=== PATIENT | female | born 1945 | race Caucasian/White ===

== ENCOUNTER 2018-05-13 14:19 | Outpatient (CLI) | payer OTHER ==
[~2018-05-13 14:19] MED LIST: LISINOPRIL2.5 MG; NORVASC5 MG; PLAQUENIL; ULTRACET PO; [UNRECOGNIZED DRUG - OTHER]; [UNRECOGNIZED DRUG - OTHER]
== END 2018-05-13 14:26 | disposition home or self-care (01) ==
LOC: MAMO-SONO 14:19
DX: Z12.31 Encounter for screening mammogram for malignant neoplasm of breast (principal); Z87.898 Personal history of other specified conditions; N60.22 Fibroadenosis of left breast; N60.21 Fibroadenosis of right breast

== ENCOUNTER 2020-04-06 14:19 | Outpatient (CLI) | payer OTHER | END 2020-04-06 14:32 | disposition home or self-care (01) | LOC: NUCLEAR 14:19 | DX: M81.0 Age-related osteoporosis without current pathological fracture (principal); Z13.820 Encounter for screening for osteoporosis ==

== ENCOUNTER → 2020-06-28 | Outpatient (CLI) | payer OTHER | END | disposition home or self-care (01) | LOC: SONOGRAMA 08:55 | PROVIDERS: ATTEND Specialist/Technologist, Other Nephrology | DX: K80.80 Other cholelithiasis without obstruction (principal); R10.84 Generalized abdominal pain; N18.30 Chronic kidney disease, stage 3 unspecified; R31.29 Other microscopic hematuria ==

== ENCOUNTER 2022-02-27 10:14 | Outpatient (CLI) | payer OTHER | END 2022-02-27 10:20 | disposition home or self-care (01) | LOC: SONOGRAMA 10:14 | DX: R10.9 Unspecified abdominal pain (principal); R31.9 Hematuria, unspecified; N18.30 Chronic kidney disease, stage 3 unspecified ==

== ENCOUNTER → 2022-04-20 | Outpatient (CLI) | payer OTHER | END | disposition home or self-care (01) | LOC: NUCLEAR 13:00 | PROVIDERS: ATTEND Internal Medicine | DX: M81.0 Age-related osteoporosis without current pathological fracture (principal) ==

== ENCOUNTER 2022-10-18 10:18 | Emergency (ER) | payer OTHER ==
[~2022-10-18] VITALS: Ht 152.4 cm; Wt 61.2 kg
== END 2022-10-18 13:10 | disposition home or self-care (01) ==
LOC: ER 10:18
DX: M54.50 Low back pain, unspecified (principal); I10 Essential (primary) hypertension; M06.8A Other specified rheumatoid arthritis, other specified site

== ENCOUNTER 2022-11-04 10:04 | Emergency (ER) | payer OTHER ==
[~2022-11-04] VITALS: Ht 152.4 cm; Wt 61.2 kg
== END 2022-11-04 13:48 | disposition home or self-care (01) ==
LOC: ER 10:04
DX: M54.50 Low back pain, unspecified (principal); Z85.42 Personal history of malignant neoplasm of other parts of uterus; I10 Essential (primary) hypertension; M19.90 Unspecified osteoarthritis, unspecified site; D64.9 Anemia, unspecified; M48.50XA Collapsed vertebra, not elsewhere classified, site unspecified, initial encounter for fracture

== ENCOUNTER 2022-11-19 11:56 | Outpatient (CLI) | payer OTHER | END 2022-11-19 12:04 | disposition home or self-care (01) | LOC: MRI 11:56 | PROVIDERS: ATTEND Physical Medicine & Rehabilitation | DX: M54.17 Radiculopathy, lumbosacral region (principal) | CPT/HCPCS: 72148 ==

== ENCOUNTER 2022-11-25 18:03 | Emergency (ER) | payer OTHER ==
[~2022-11-25] VITALS: Ht 152.4 cm; Wt 61.2 kg
[2022-11-25] MEDS ORDERED: LEXAPRO5 MG PO (18:11)
== END 2022-11-25 22:25 | disposition home or self-care (01) ==
LOC: ER 18:03
DX: K29.60 Other gastritis without bleeding (principal); I10 Essential (primary) hypertension

== ENCOUNTER 2022-12-05 10:44 | Emergency (ER) | payer OTHER ==
[~2022-12-05] VITALS: Ht 152.4 cm; Wt 59.0 kg
[~2022-12-05 10:44] MED LIST changes: +LEXAPRO5 MG PO
== END 2022-12-05 15:33 | disposition home or self-care (01) ==
LOC: ER 10:44
DX: M54.89 Other dorsalgia (principal); I10 Essential (primary) hypertension

== ENCOUNTER 2023-03-16 14:34 | Emergency (ER) | payer OTHER ==
[~2023-03-16] VITALS: Ht 152.4 cm; Wt 56.7 kg
== END 2023-03-16 22:32 | disposition home or self-care (01) ==
LOC: ER 14:34
PROVIDERS: Emergency Medicine
DX: R30.0 Dysuria (principal); R35.89 Other polyuria; Z85.89 Personal history of malignant neoplasm of other organs and systems; I11.9 Hypertensive heart disease without heart failure; I00 Rheumatic fever without heart involvement; J32.8 Other chronic sinusitis
CPT/HCPCS: 36415; 74240; 96365; 96372; 99284; J0696; J3490

== ENCOUNTER 2023-08-14 11:59 | Outpatient (CLI) | payer OTHER | END 2023-08-14 12:02 | disposition home or self-care (01) | LOC: RAD 11:59 | PROVIDERS: ATTEND Anesthesiology | DX: M54.59 Other low back pain (principal); S32.002A Unstable burst fracture of unspecified lumbar vertebra, initial encounter for closed fracture ==

== ENCOUNTER 2024-06-16 10:20 | Inpatient (IN) | payer OTHER ==
[~2024-06-16] VITALS: Ht 152.4 cm; Wt 61.2 kg
--- NOTE | 2024-06-16 10:24 | NUR ---
PACIENTE ALERTA Y ORIENTADA X3 ACOMPANADA DE PERSONAL DE AMBULANCIA Y CUIDADORA QUIEN REFIERE ENCONTRO PACIENTE EN PISO DESMAYADA, PACIENTE REFIERE VOMITOS. SE REALIZA EKG Y SE MUESTRA A DR. BURR QUIEN INDICA CONECTAR A PACIENTE A MONITOR CARDIACO.
[2024-06-16] MEDS ORDERED: FAMOTIDINE/PF 20 MG in 0.9 % SODIUM CHLORIDE 8 ML IV PUSH STA (10:28)
[2024-06-16] MEDS ORDERED: ONDANSETRON HCL 2 MG/ML VIAL IV ONE (10:30)
[2024-06-16] MEDS ORDERED: 0.9 % SODIUM CHLORIDE 1,000 ML IV SCH ×2 (10:30→16:45)
[2024-06-16 11:34] LABS: HEMATOCRIT 31.1 % (36.0-45.00); HEMOGLOBIN 9.9 g/dL (12.0-15.00); MEAN CELL VOLUME 81.2 fL (80.00-100.00); MEAN CORPUSCULAR HEMOGLOBIN 25.7 pg (27.00-32.0); MEAN CORPUSCULAR HGB CONC 31.7 g/dl (32.0-36.0); PLATELET COUNT 449 K/uL (150-450); RED BLOOD COUNT 3.84 M/uL (4.00-6.00)
[2024-06-16 12:04] LABS: ALBUMIN 3.3 gm/dL (3.4-5.0); BILIRUBIN TOTAL 0.41 mg/dL (0.3-1.2); CALCIUM 9.6 mg/dL (8.5-10.1); GLOBULINA 4.7 G/DL (2.4-3.5)
[2024-06-16 12:09] LABS: PH,URINE 6.5 (5.0-8.0); URINE APPEARANCE Cloudy; URINE BILIRRUBIN Negative (NEGATIVE); URINE BLOOD Large; URINE COLOR Yellow; URINE GLUCOSE Negative (NEGATIVE); URINE KETONE Negative (NEGATIVE); URINE LEUKOCYTE Large; URINE NITRATE Negative; URINE UROBILINOGEN 0.2 E.U./dl
[2024-06-16 12:10] LABS: URINE BACTERIA 1135.8 uL (0.0-1933); URINE CAST 9.13 uL (0.0-1.40); URINE EPITHELIAL CELLS 60.9 uL (0.0-38.8); URINE RBC 656.2 uL (0.0-20.8); URINE WBC 1481.3 uL (0.0-23.2)
[2024-06-16 12:18] LABS: GFR 10.15
[2024-06-16 12:19] LABS: CREATININE SERUM 4.21 mg/dL (0.55-1.02); POTASSIUM 2.55 mEq/L (3.5-5.1)
[2024-06-16 12:22] LABS: URINE PROTEIN 100 (NEGATIVE)
[2024-06-16 12:23] LABS: URINE CRYSTALS FEW /HPF
[2024-06-16] MEDS ORDERED: POTASSIUM CHLORIDE/D5-0.9%NACL 1,000 ML IV ONE (12:30)
[2024-06-16] MEDS ORDERED: MAG HYDROX/ALUMINUM HYD/SIMETH 30 ML BLIST.PACK PO ONE (12:45)
--- NOTE | 2024-06-16 13:29 | NUR ---
PTE ALERTA Y ORIENTADA X3 SE LE ORIENTA SOBRE TX MEDICO LO CUAL REFIERE ENTENDER Y ACEPTAR SE LE REALIZAN MUESTRAS DE LAB BAJO MEDIDAS ASEPTICAS Y SE LE ADMINISTRA MEDICAMENTOS SGUN ORDEN MEDICA. SE LE CATETERIZA A PTE PARA MUESTRA URINARIA.
--- NOTE | 2024-06-16 15:46 | NUR ---
SE RECIBE FEMINA ALERTA Y ORIENTADA X3 EN CAMA CON BARANDAS ELEVADAS POR COON SEGURIDAD Y QUINTERO DE ID. CONECTADA A MONITOR CARDIACO Y OXIMETRIA DE PULSO. VENOPUNCION X2 PATENTES BAJANDO IV FLUIDS POR IV PUMP. PTE PENDIENTE A CONSULTA CON MEDICINA INTERNA.
[2024-06-16] MEDS ORDERED: CEFTRIAXONE SODIUM 2,000 MG in 0.9 % SODIUM CHLORIDE 100 ML IV SCH (16:53)
[2024-06-16] MEDS ORDERED: PANTOPRAZOLE SODIUM 40 MG/VIAL VIAL IV SCH (16:54)
[2024-06-16] MEDS ORDERED: MORPHINE SULFATE 4 MG/ML CARTRIDGE IV PRN (17:00)
[2024-06-16] MEDS ORDERED: ACETAMINOPHEN 500 MG GEL..CAP PO PRN (17:00)
[2024-06-16] MEDS ORDERED: ONDANSETRON HCL 4 MG in 0.9 % SODIUM CHLORIDE 50 ML IV PRN (17:00)
[2024-06-16] MEDS ORDERED: POTASSIUM CHLORIDE IN WATER 100 ML IV SCH (17:00)
[2024-06-16 19:39] LABS: INR 1.1; PARTIAL THROMBOPLASTIN TIME 25.5 SECONDS (22.0-34.0); PROTHROMBIN TIME 11.9 SECONDS (9.0-11.5)
[2024-06-16 19:41] LABS: PHOSPHOROUS 3.5 mg/dL (2.5-4.9)
[2024-06-16 20:00] VITALS: BP 183/74; O2SAT 96
[2024-06-16 21:00] VITALS: BP 196/69; O2SAT 100
[2024-06-16] MEDS ORDERED: TEMAZEPAM 15 MG CAPSULE PO ONE (21:00)
[2024-06-16] MEDS ORDERED: ASPIRIN 81 MG TAB.CHEW PO SCH (21:00)
[2024-06-16] MEDS ORDERED: SIMVASTATIN 40 MG TABLET PO SCH (21:00)
[2024-06-16 22:00] VITALS: BP 173/88; O2SAT 99
[2024-06-16 23:30] VITALS: BP 172/67; O2SAT 96
[2024-06-17] VITALS (7 sets, daily range): BP systolic 124–159; BP diastolic 50–65; O2SAT 98–100
[2024-06-17] MEDS ORDERED: NITROGLYCERIN IN 5 % DEXTROSE 50 MG/250 ML KIT IV SCH (00:30)
[2024-06-17 05:51] LABS: ALBUMIN 2.9 gm/dL (3.4-5.0); BILIRUBIN TOTAL 0.19 mg/dL (0.3-1.2); CALCIUM 8.7 mg/dL (8.5-10.1); GLOBULINA 3.8 G/DL (2.4-3.5); POTASSIUM 3.5 mEq/L (3.5-5.1); TOTAL PROTEIN 6.7 gm/dL (6.4-8.2); TSH 0.458 uIU/mL (0.358-3.74)
[2024-06-17 06:26] LABS: GFR 10.41
[2024-06-17 06:27] LABS: CREATININE SERUM 4.12 mg/dL (0.55-1.02)
[2024-06-17] MEDS ORDERED: hydrALAZINE HCL 20 MG VIAL IV PRN (06:30)
[2024-06-17] MEDS ORDERED: NITROGLYCERIN IN 5 % DEXTROSE 250 ML IV SCH (06:45)
[2024-06-17] MEDS ORDERED: ENOXAPARIN SODIUM 40 MG/0.4 ML SYRINGE SUBCUTANEO SCH (09:00)
[2024-06-18 01:06] VITALS: BP 165/92; O2SAT 100
[2024-06-18] MEDS ORDERED: RINGERS SOLUTION,LACTATED 1,000 ML IV SCH (06:30)
[2024-06-18 07:27] LABS: MEAN CELL VOLUME 82.9 fL (80.00-100.00); MEAN CORPUSCULAR HGB CONC 31.8 g/dl (32.0-36.0); PLATELET COUNT 217 K/uL (150-450); RED BLOOD COUNT 2.58 M/uL (4.00-6.00); RED CELL DISTRIBUTION WIDTH 17.3 % (11.5-14.5)
[2024-06-18 07:46] VITALS: BP 190/81; O2SAT 98
[2024-06-18 07:53] LABS: HEMATOCRIT 21.4 % (36.0-45.00); HEMOGLOBIN 6.8 g/dL (12.0-15.00); MEAN CORPUSCULAR HEMOGLOBIN 26.3 pg (27.00-32.0)
[2024-06-18 08:13] LABS: ALBUMIN 2.8 gm/dL (3.4-5.0); BILIRUBIN TOTAL 0.25 mg/dL (0.3-1.2); CALCIUM 8.5 mg/dL (8.5-10.1); CREATININE SERUM 3.57 mg/dL (0.55-1.02); GFR 12.28; GLOBULINA 3.6 G/DL (2.4-3.5); MAGNESIUM 1.7 mg/dL (1.8-2.4); POTASSIUM 3.78 mEq/L (3.5-5.1); TOTAL PROTEIN 6.4 gm/dL (6.4-8.2)
[2024-06-18 08:20] LABS: C-REACTIVE PROTEIN 10.2 MG/DL (0.00-0.29)
[2024-06-18 08:51] VITALS: BP 178/74; O2SAT 100
[2024-06-18 08:58] LABS: MEAN CELL VOLUME 82.4 fL (80.00-100.00); PLATELET COUNT 215 K/uL (150-450); RED BLOOD COUNT 2.58 M/uL (4.00-6.00); RED CELL DISTRIBUTION WIDTH 17.2 % (11.5-14.5)
[2024-06-18] MEDS ORDERED: ENOXAPARIN SODIUM 60 MG/0.6 ML SYRINGE SUBCUTANEO SCH (09:00)
[2024-06-18 09:04] LABS: HEMATOCRIT 21.3 % (36.0-45.00); MEAN CORPUSCULAR HEMOGLOBIN 26.3 pg (27.00-32.0)
[2024-06-18 09:26] LABS: HEMOGLOBIN 6.8 g/dL (12.0-15.00)
[2024-06-18] MEDS ORDERED: FUROsemide 20 MG/2 ML VIAL IV PRN (10:45)
[2024-06-18 13:55] VITALS: O2SAT 97
[2024-06-18] MEDS ORDERED: AZITHROMYCIN 500 MG VIAL IV NR (17:00)
[2024-06-18 18:10] VITALS: BP 180/88
[2024-06-18 21:53] VITALS: O2SAT 94
[2024-06-19 00:53] VITALS: BP 160/80; O2SAT 99
[2024-06-19 01:00] VITALS: O2SAT 95
[2024-06-19 02:30] VITALS: BP 150/74; O2SAT 96
[2024-06-19 07:05] VITALS: BP 178/94; O2SAT 97
[2024-06-19 07:46] LABS: URINE APPEARANCE Cloudy; URINE BILIRRUBIN Negative (NEGATIVE); URINE BLOOD Small; URINE COLOR Yellow; URINE KETONE Trace (NEGATIVE); URINE LEUKOCYTE Small; URINE NITRATE Negative; URINE PROTEIN 30 (NEGATIVE); URINE UROBILINOGEN 0.2 E.U./dl
[2024-06-19 07:49] LABS: URINE BACTERIA 156.6 uL (0.0-1933); URINE CAST 3.38 uL (0.0-1.40); URINE EPITHELIAL CELLS 5.5 uL (0.0-38.8); URINE RBC 89.7 uL (0.0-20.8); URINE WBC 190.7 uL (0.0-23.2)
[2024-06-19 08:08] LABS: URINE GLUCOSE 100 MG/DL (NEGATIVE); URINE YEAST MANY /hpf
[2024-06-19] MEDS ORDERED: SUCRALFATE 1 G TABLET PO SCH (09:00)
[2024-06-19 12:35] VITALS: O2SAT 97
[2024-06-19] MEDS ORDERED: AZITHROMYCIN 2 MG/ML REDILUIDO IV SCH (17:00)
[2024-06-19 17:44] VITALS: BP 150/79; O2SAT 96
[2024-06-20] VITALS (8 sets, daily range): BP systolic 110–187; BP diastolic 70–92; O2SAT 95–99
[2024-06-20 07:55] LABS: HEMATOCRIT 30.8 % (36.0-45.00); HEMOGLOBIN 10.7 g/dL (12.0-15.00); MEAN CELL VOLUME 82.4 fL (80.00-100.00); MEAN CORPUSCULAR HEMOGLOBIN 28.6 pg (27.00-32.0); MEAN CORPUSCULAR HGB CONC 34.7 g/dl (32.0-36.0); PLATELET COUNT 233 K/uL (150-450); RED BLOOD COUNT 3.74 M/uL (4.00-6.00); RED CELL DISTRIBUTION WIDTH 16.6 % (11.5-14.5)
[2024-06-20] MEDS ORDERED: CIPROFLOXACIN IN 5 % DEXTROSE 200 ML IV SCH (09:57)
[2024-06-20] MEDS ORDERED: ENALAPRILAT DIHYDRATE 1.25 MG/ML VIAL IV PRN (11:15)
[2024-06-20] MEDS ORDERED: SODIUM CHLORIDE 0.45 % 1,000 ML IV SCH (11:15)
[2024-06-20 19:05] LABS: HEMATOCRIT 34.1 % (36.0-45.00); HEMOGLOBIN 11.3 g/dL (12.0-15.00); MEAN CELL VOLUME 83.2 fL (80.00-100.00); MEAN CORPUSCULAR HEMOGLOBIN 27.6 pg (27.00-32.0); MEAN CORPUSCULAR HGB CONC 33.1 g/dl (32.0-36.0); PLATELET COUNT 249 K/uL (150-450); RED CELL DISTRIBUTION WIDTH 16.3 % (11.5-14.5)
[2024-06-21 03:09] VITALS: BP 160/85; O2SAT 97
[2024-06-21 09:39] VITALS: BP 179/88; O2SAT 90
[2024-06-21] MEDS ORDERED: FLUCONAZOLE 100 MG TABLET PO NR (17:00)
[2024-06-21 18:55] VITALS: BP 170/87; O2SAT 96
[2024-06-21 19:33] VITALS: O2SAT 98
[2024-06-22 00:07] VITALS: O2SAT 97
[2024-06-22 00:43] VITALS: BP 182/95; O2SAT 98
[2024-06-22 03:27] VITALS: O2SAT 98
[2024-06-22 06:51] LABS: ALBUMIN 2.9 gm/dL (3.4-5.0); CALCIUM 8.2 mg/dL (8.5-10.1); CREATININE SERUM 2.32 mg/dL (0.55-1.02); GFR 20.15
[2024-06-22] MEDS ORDERED: COZAAR50 MG PO (07:07)
[2024-06-22] MEDS ORDERED: FLUCONAZOLE150 MG PO (07:08)
[2024-06-22] MEDS ORDERED: HYDRALAZINE HCL25 MG PO (07:10)
[2024-06-22 08:24] LABS: POTASSIUM 2.83 mEq/L (3.5-5.1)
[2024-06-22 08:25] LABS: PHOSPHOROUS 1.9 mg/dL (2.5-4.9)
[2024-06-22 08:49] VITALS: BP 197/101; O2SAT 100
[2024-06-22] MEDS ORDERED: hydrALAZINE HCL 50 MG TABLET PO SCH (09:00)
[2024-06-22 09:20] VITALS: O2SAT 95
== END 2024-06-22 11:17 | disposition home or self-care (01) | DRG 689 ==
LOC: ER 10:20 → ICU-2 19:54 → SEC-K 06-17 18:24 → MEDI 06-18 07:42
PROVIDERS: General Practice; Internal Medicine Infectious Disease; Internal Medicine Nephrology; ADMIT Internal Medicine; ATTEND Internal Medicine
PROC: BW21ZZZ Computerized Tomography (CT Scan) of Abdomen and Pelvis (ICD-10-PCS; 2024-06-16)
PROC: BW28ZZZ Computerized Tomography (CT Scan) of Head (ICD-10-PCS; 2024-06-16)
PROC: B345ZZZ Ultrasonography of Bilateral Common Carotid Arteries (ICD-10-PCS; 2024-06-16)
PROC: B24BZZZ Ultrasonography of Heart with Aorta (ICD-10-PCS; 2024-06-16)
PROC: 4A12X4Z Monitoring of Cardiac Electrical Activity, External Approach (ICD-10-PCS; principal; 2024-06-18)
PROC: 30233N1 Transfusion of Nonautologous Red Blood Cells into Peripheral Vein, Percutaneous Approach (ICD-10-PCS; 2024-06-18)
DX: N39.0 Urinary tract infection, site not specified (principal); I21.A1 Myocardial infarction type 2; N17.9 Acute kidney failure, unspecified; D64.9 Anemia, unspecified; E86.0 Dehydration; E87.6 Hypokalemia; I12.9 Hypertensive chronic kidney disease with stage 1 through stage 4 chronic kidney disease, or unspecified chronic kidney disease; N18.9 Chronic kidney disease, unspecified

== ENCOUNTER 2024-09-18 08:36 | Emergency (ER) | payer OTHER ==
[~2024-09-18] VITALS: Ht 157.5 cm; Wt 55.8 kg
[~2024-09-18 08:36] MED LIST changes: +COZAAR50 MG PO; +FLUCONAZOLE150 MG PO; +HYDRALAZINE HCL25 MG PO
[2024-09-18] MEDS ORDERED: LEVALBUTEROL HCL 1.25 MG/3 ML SOLUTION IH STA (09:14)
[2024-09-18] MEDS ORDERED: BUDESONIDE 0.5 MG/2 ML AMPUL.NEB IH STA (09:15)
[2024-09-18 10:09] LABS: ABG PH 7.388 (7.35-7.45); ABG PO2 85.9 mmHg (80-100); ABG pCO2 40.5 mmHg (35-45); BICARBONATE 23.9 mmol/l (23-25); SaO2 96.3 %; Tco2 25.1 mmol/l
[2024-09-18 10:11] LABS: HEMATOCRIT 30.3 % (36.0-45.00); MEAN CELL VOLUME 94.5 fL (80.00-100.00); MEAN CORPUSCULAR HEMOGLOBIN 31.2 pg (27.00-32.0); PLATELET COUNT 262 K/uL (150-450); RED CELL DISTRIBUTION WIDTH 15.2 % (11.5-14.5)
[2024-09-18 10:18] LABS: allen test SATISFACTORY; o2 21 %; puncture site RADIAL RIGHT
[2024-09-18 11:04] LABS: ALBUMIN 3.8 gm/dL (3.4-5.0); ALKALINE PHOSPHATASE 139 U/L (50-136); ALT/SGPT 10 U/L (12-78); ANION GAP 9 (10.0-20.0); AST/SGOT 12 U/L (15-37); BILIRUBIN TOTAL 0.35 mg/dL (0.3-1.2); BILIRUBIN,CONJUGATED < 0.10 mg/dL (0.0-0.2); BILIRUBIN,UNCONJUGATED 0.25 mg/dL (0.0-0.6); BLOOD UREA NITROGEN 35 mg/dL (7-18); BUN CREA RATIO 15 (7.0-25.0); CALCIUM 9.7 mg/dL (8.5-10.1); CARBON DIOXIDE 28 mEq/L (21-32); CHLORIDE 106 mmol/L (98-107); CREATININE SERUM 2.27 mg/dL (0.55-1.02); GFR 20.66; GLUCOSE FASTING 117 mg/dL (65-100); OSMOLALITY SERUM 287 MOSM/KG (275-295); POTASSIUM 3.61 mEq/L (3.5-5.1); SODIUM 139 mmol/L (136-145); TOTAL PROTEIN 7.7 gm/dL (6.4-8.2)
[2024-09-18 12:44] LABS: URINE APPEARANCE Clear; URINE BILIRRUBIN Negative (NEGATIVE); URINE BLOOD Negative; URINE COLOR Yellow; URINE GLUCOSE Negative (NEGATIVE); URINE KETONE Negative (NEGATIVE); URINE LEUKOCYTE Negative; URINE NITRATE Negative; URINE PROTEIN Trace (NEGATIVE); URINE UROBILINOGEN 0.2 E.U./dl
[2024-09-18 12:49] LABS: URINE BACTERIA 4.8 uL (0.0-1933); URINE EPITHELIAL CELLS 1.5 uL (0.0-38.8)
[2024-09-18 13:05] LABS: URINE RBC 1.4 uL (0.0-20.8)
== END 2024-09-18 14:49 | disposition home or self-care (01) ==
LOC: ER 08:38
PROVIDERS: General Practice
DX: J44.1 Chronic obstructive pulmonary disease with (acute) exacerbation (principal); J00 Acute nasopharyngitis [common cold]; Z20.822 Contact with and (suspected) exposure to COVID-19; I10 Essential (primary) hypertension

== ENCOUNTER 2024-11-06 13:49 | Outpatient (CLI) | payer OTHER | END 2024-11-06 13:50 | disposition home or self-care (01) | LOC: NUCLEAR 13:49 | PROVIDERS: ATTEND Internal Medicine Rheumatology | DX: M81.0 Age-related osteoporosis without current pathological fracture (principal) ==

== ENCOUNTER 2025-02-04 09:56 | Outpatient (CLI) | payer OTHER | END 2025-02-04 10:05 | disposition home or self-care (01) | LOC: SONOGRAMA 09:56 | PROVIDERS: ATTEND Specialist/Technologist, Other Nephrology | DX: R10.9 Unspecified abdominal pain (principal); N18.30 Chronic kidney disease, stage 3 unspecified; R31.9 Hematuria, unspecified ==